=== PATIENT | female | born 1975 | race Two or more races ===

== ENCOUNTER 2020-05-09 06:15 | Day surgery (SDC) | payer OTHER ==
[~2020-05-09] VITALS: Ht 167.6 cm; Wt 58.1 kg
[2020-05-09] VITALS (10 sets, daily range): BP systolic 98–117; BP diastolic 61–73
[~2020-05-09 06:15] MED LIST: ADDERAL20 MG ORAL; EXCEDRIN EXTRA1 EAC1 PO; LR 1000ml 1,000 ML IVLG SCH
[2020-05-09] MEDS ORDERED: Lidocaine 1% MPF 10mg/ml 5ml ONE (07:00)
[2020-05-09] MEDS ORDERED: LR 1000ml ONE (07:00)
--- NOTE | 2020-05-09 07:03 | Anethesia Preoperative Eval ---
Anesthesia Pre-op PMH/ROS General Date of Evaluation: May 09, 2020 Time of Evaluation: 07:00 Anesthesiologist: katarina ASA Score: ASA 2 Mallampati Score Class I : Soft palate, uvula, fauces, pillars visible Class II: Soft palate, uvula, fauces visible Class III: Soft palate, base of uvula visible Class IV: Only hard plate visible Mallampati Classification: Class II Surgeon: Elvie Diagnosis: Anemia Surgical Procedure: EGD/Colonoscopy Anesthesia History: none Family History: no anesthesia problems Allergies: Coded Allergies: No Known Allergies (Unverified , 05/09/20) Medications: see eMAR Patient NPO?: Yes NPO Date: May 09, 2020 NPO Time: 00:01 Past Medical History Cardiovascular: Denies: HTN, CAD, [place], valve dz, arrhythmia, other Pulmonary: Denies: asthma, COPD, ROSSI, other Gastrointestinal/Genitourinary: Denies: GERD, CRI, ESRD, other Neurologic/Psychiatric: Reports: depression/anxiety; Denies: dementia, CVA, TIA, other Endocrine: Denies: DM, hypothyroidism, steroids, other HEENT: Denies: cataract (L), cataract (R), glaucoma, [place] (L), SH[place]OCK (R), other Hematology/Immune: Reports: anemia; Denies: DVT, bleeding disorder, other Musculoskeletal/Integumentary: Denies: OA, RA, DJD, DDD, edema, other PSxH Narrative: colonoscopy Anesthesia Pre-op Phys. Exam Physician Exam Last Vital Signs Date Time Temp Pulse Resp B/P (MAP) Pulse Ox O2 Delivery O2 Flow Rate FiO2 05/09/20 07:00 97.5 76 18 104/69 100 Room Air Constitutional: NAD Neurologic: CN 2-12 intact Cardiovascular: RRR Respiratory: CTA Gastrointestinal: S/NT/ND Airway Exam Mallampati Classification 2 Mallampati Score: Class II MO: full ROM: full Dentures: no upper, no lower Anesthesia Pre-op A/P Labs Urine Test Test 05/09/20 06:15 Urine HCG, Qualitative Pending Studies Pre-op Studies: EKG - SR Risk Assessment & Plan Assessment: covid neg Plan: mac Status Change Before Surgery: No Pre-Antibiotics Drug: none Kusum Almaraz CRNA May 09, 2020 07:03
--- NOTE | 2020-05-09 07:23 | Short Stay Surgery H&P ---
History of Present Illness History of Present Illness Chief Complaint see attached H&P HPI Ana Ayoub is a 44 year old female who was admitted on for Anemia Patient History Allergies: Coded Allergies: No Known Allergies (Unverified , 05/09/20) Medication History Scheduled Aspirin/Acetaminophen/Caffeine (Excedrin Extra Strength Caplet), 1 EACH PO NEEDED, (Reported) Dextroamphetamine/Amphetamine (Adderall 20 mg Tablet), 20 MG ORAL DAILY, (Reported) Physical Exam Vital Signs Last Vital Signs Date Time Temp Pulse Resp B/P (MAP) Pulse Ox O2 Delivery O2 Flow Rate FiO2 05/09/20 07:08 Room Air 05/09/20 07:00 97.5 76 18 104/69 100 Labs Laboratory Tests Test 05/09/20 06:15 Urine HCG, Qualitative Negative (NEGATIVE) Plan Attestation Are the patient's medical conditions optimized for surgery? Thomas Blake MD May 09, 2020 07:23
--- NOTE | 2020-05-09 07:24 | Pre-Procedure Note/Attestation ---
Pre-Procedure Note/Attestation Complete Prior to Procedure Planned Procedure: not applicable Procedure Narrative: esophagogastroduodenoscopy colon Indications for Procedure Pre-Operative Diagnosis: anemia, screening, abd pain Attestation I attest that I discussed the nature of the procedure; its benefits; risks and complications; and alternatives (and the risks and benefits of such altern atives), prior to the procedure, with the patient (or the patient's legal housing management representative). I attest that, if there was a reasonable possibility of needing a blood transfusion, the patient (or the patient's legal housing management representative) was given the [facility] standardized written summary, pursuant to the [employer] Ale[employer] Blood Safety Act ([place] Health and Safety Code # 1645, as amended). I attest that I re-evaluated the patient just prior to the surgery and that there has been no change in the patient's H&P, except as documented below: Thomas Blake MD May 09, 2020 07:24
--- NOTE | 2020-05-09 08:06 | Immediate Post-Op Evaluation ---
Immediate Post-Op Evalulation Immediate Post-Op Evalulation Procedure: EGD/Colonoscopy Date of Evaluation: May 09, 2020 Time of Evaluation: 08:05 IV Fluids: 500 Blood Pressure Systolic: 109 Blood Pressure Diastolic: 70 Pulse Rate: 75 Respiratory Rate: 14 O2 Sat by Pulse Oximetry: 99 Temperature (Fahrenheit): 97.4 Nausea: No Vomiting: No Complications none Patient Status: awake, reacts, patent Hydration Status: adequate Drug: none SheilariKusum hill CRNA May 09, 2020 08:06
--- NOTE | 2020-05-09 09:06 | 48 Hour Post Anesthesia Eval ---
Post Anesthesia Evaluation Procedure: EGD/Colonoscopy Date of Evaluation: May 09, 2020 Time of Evaluation: 09:05 Blood Pressure Systolic: 115 0: 70 Pulse Rate: 65 Respiratory Rate: 14 O2 Sat by Pulse Oximetry: 98 Airway: patent Nausea: No Vomiting: No Hydration Status: adequate Cardiopulmonary Status: stable Mental Status/LOC: patient returned to baseline Follow-up Care/Observations: na Post-Anesthesia Complications: none Follow-up care needed: N/A Kusum Almaraz CRNA May 09, 2020 09:06
--- NOTE | 2020-05-13 21:30 | Endoscopy Procedure Note ---
Endoscopy Procedure Note General Indication for Procedure: anemia, screen Procedures Performed: EGD, colonoscopy Operative Findings/Diagnosis: early diverticulosis Specimen: yes Pt Tolerated Procedure Well: Yes Estimated Blood Loss: none Anesthesia Anesthesiologist: Felipe Carbajal Anesthesia: MAC Medications Medication Given: see anesthesia record Inserted Devices Implant(s) used?: No GI Core Measures 50 yrs or older w/o bx or poly: Not Applicable 10yrs. F/U recommended: Not Applicable Thomas Blake MD May 13, 2020 21:30
--- NOTE | 2020-05-13 21:36 | Brief Operative Note ---
Immediate Post Operative Note Operative Note Chief Complaint: anemia, screen Pre-op Diagnosis: anemia, screening, abd pain Procedure: esophagogastroduodenoscopy bx, colon Post-op Diagnosis: rare tic Surgeon: corinne Anesthesiologist: see attached Anesthesia: MAC Specimen: yes Complications: none Condition: stable Fluids: per anesthesia Implant(s) used?: No Thomas Blake MD May 13, 2020 21:36
--- NOTE | 2020-05-14 00:45 | Operative Note - Dictated ---
DATE OF OPERATION: 05/09/2020 GASTROENTEROLOGY PROCEDURE REPORT PROCEDURE: Upper gastrointestinal endoscopy with biopsy as well as colonoscopy. SURGEON: Thomas Blake MD. ANESTHESIA: Please see the separate anesthesiologist notes for details. PRE-ENDOSCOPIC DIAGNOSES: 1. Anemia. 2. Need for screening colonoscopy. POST-ENDOSCOPIC DIAGNOSES: 1. Normal upper endoscopy, status post random biopsies of the duodenum and antrum. 2. Rare apparently left-sided diverticulosis. 3. Normal terminal ileum for about 10 cm. DESCRIPTION OF PROCEDURE: The procedure, its risks, indications, alternatives, and possible complications were explained to the patient and informed consent was obtained. The patient was then sedated in the left lateral decubitus position. A diagnostic upper endoscope was introduced through oropharynx and advanced to the duodenum. The endoscope was then gradually withdrawn and mucosa examined carefully. The rectal exam was then performed and colonoscope was introduced into the rectum and advanced to 10 cm into the terminal ileum. The colonoscope was then gradually withdrawn and mucosa examined carefully. Examination was concluded with the retroflex of the rectum. Biopsies of the antrum and the duodenum were sent to pathology for review in the upper examination. No biopsies were obtained from the lower examination. The patient was sent to recovery in good condition. COMPLICATIONS: None. ASSESSMENT: There were no abnormalities in this examination to explain the patient's clinical findings. Biopsies will be evaluated and the patient will be seen at follow up. RECOMMENDATIONS: 1. Follow up biopsy results. 2. Outpatient followup. Thomas Blake M.D. DR: ANTHONY JOB#: [id number] CC: Thomas Blake M.D.; Fax#: [phone] [facility]
== END 2020-05-09 09:15 | disposition home or self-care (01) ==
LOC: GAS 06:15
DX: Z12.11 Encounter for screening for malignant neoplasm of colon (principal); D64.9 Anemia, unspecified; K57.90 Diverticulosis of intestine, part unspecified, without perforation or abscess without bleeding; F32.9 Major depressive disorder, single episode, unspecified; F41.9 Anxiety disorder, unspecified
CPT/HCPCS: 43239; 45378; 81025; 94003; J2704; J7120; U0002; 94150